=== PATIENT | female | born 1965 | race Caucasian/White ===

== ENCOUNTER 2023-05-13 07:35 | Emergency (ER) | payer OTHER, SELFPAY ==
[2023-05-13 07:47] VITALS: BP 119/84; PULSE 65; RESP 18; TEMP 36; O2SAT 98; BMI 24.3
[2023-05-13] MEDS: TETANUS/DIPHTH/PERTUSSIS 0.5 ML SYRINGE IM (08:18)
[2023-05-13] MEDS: cephALEXin 500 MG CAPSULE PO (08:22)
--- NOTE | 2023-05-13 09:04 | ED.ANIMALBIT ---
HPI - Animal Bite General Date Seen: 05/13/23 Chief Complaint: Animal Bite Stated Complaint: dog bite, on the left arm Time Seen by Provider: 05/13/23 07:55 Source: patient and other Mode of arrival: ambulatory Limitations: no limitations History of Present Illness HPI narrative: This very nice lady from [place], was at [place] on a run, when a group a dog that was held by another person jumped up and bit her on the left forearm. She is right-hand dominant, noted there is a laceration, she did get information on the dogs all the shots are up-to-date, but thought she may need stitches, she does no history of numbness tingling weakness, into her left extremity. She is able to move it normally. She is on no medications, is allergic to ibuprofen, which causes anaphylaxis. She has no immunosuppressive diseases on on any anticoagulants. MD complaint: animal bite Onset (ago): minute(s) Animal: dog Description of animal: household pet and immunizations UTD Mechanism: bite Location: other Location - Extremities: Left: forearm Pain description: other Severity: mild Context: provoked Associated symptoms: none Treatments prior to arrival: wound dressing(s) Related Data Patient tetanus UTD: No Home Medications Medication Instructions Recorded Confirmed sertraline 100 mg tablet 100 mg PO DAILY 05/13/23 05/13/23 Allergies Allergy/AdvReac Type Severity Reaction Status Date / Time ibuprofen Allergy Severe Difficulty Verified 05/13/23 07:47 Breathing Review of Systems Status of ROS: Reports: 10 or more systems reviewed and unremarkable except as noted in History and below Exam Narrative: Exam Narrative: Patient is a ezekiel lady in no apparent distress, half-bhatti laceration of 5 cm is noted on the extensor part of the forearm. She has full extension of her wrist, flexion lateral flexion, good cap refill good radial pulses. Elbow is nontender has full range of motion. Wound is anesthetized with 1% lidocaine with epinephrine times 10 mL. She tolerated this well, wound is cleaned out with the sterile water x5 100 mL, sterile prep and drape is done, 6 simple 4-0 sutures were used, to approximate the wound nicely. I did check the underlying structures, there appeared to be not into the fascia, with muscle and all the underlying structures were intact. No evidence of any foreign body. Estimated blood loss less than 1 mL. Dressing placed. Patient received prophylactic antibiotics. Post itching, normal neurovascular integrity is noted of her distal hand. We did offer and update her tetanus Const: Vital Signs, click to edit/add: Vital Signs - 24 hr 05/13/23 07:47 Temperature 96.8 F L Pulse Rate [Right Pulse Oximeter] 65 Respiratory Rate 18 Blood Pressure [Ri ght Upper Arm] 119/84 Pulse Oximetry 98 Oxygen Delivery Me thod Room Air Documenting provider has reviewed patient's vital signs: yes Course Vital Signs Vital signs: Initial Vital Signs Temperature 96.8 F L 05/13/23 07:47 Temperature Source Temporal Artery Scan 05/13/23 07:47 Pulse Rate 65 05/13/23 07:47 Respiratory Rate 18 05/13/23 07:47 Blood Pressure 119/84 05/13/23 07:47 Blood Pressure Mean 95 05/13/23 07:47 Blood Pressure Position Sitting 05/13/23 07:47 Pulse Oximetry 98 05/13/23 07:47 Oxygen Delivery Method Room Air 05/13/23 07:47 Vital Signs Temperature 96.8 F L 05/13/23 07:47 Pulse Rate 65 05/13/23 07:47 Respiratory Rate 18 05/13/23 07:47 Blood Pressure 119/84 05/13/23 07:47 Pulse Oximetry 98 05/13/23 07:47 Oxygen Delivery Method Room Air 05/13/23 07:47 Temperature 96.8 F L 05/13/23 07:47 Pulse Rate 65 05/13/23 07:47 Respiratory Rate 18 05/13/23 07:47 Blood Pressure 119/84 05/13/23 07:47 Pulse Oximetry 98 05/13/23 07:47 Oxygen Delivery Method Room Air 05/13/23 07:47 Discharge Plan Discharge Clinical Impression: Dog bite, Laceration of forearm Patient Disposition: Home w/ Parent or Adult Condition: Improved Instructions: Animal Bite (ED), Laceration (DC), Rabies (ED) Additional Instructions: Home rest use of antibiotics as directed, lots of probiotics with this as to avoid diarrhea, this may still occur, if you have abdominal pain diarrhea and fevers he need to come back. This is fairly clean wound, but there is still chance of infection even with antibiotics, redness swelling and pain, he should be res seen. Sutures should stay in for the next 12 days. Then they should come out. Showering is okay, please leave the bandage on till tomorrow, then may come off daily bacitracin is also a good idea. Return to the ER or primary care for wound check if needed. No swimming in the river, lakes, hot tubbing, showering is encouraged. Activity Level: Light activity Prescriptions: No Action sertraline 100 mg tablet 100 mg PO DAILY Follow Up/Referrals: Provider,Not a Local [Primary Care Provider] - Stand Alone Forms: [employer]Lex Info Instructions
--- NOTE | 2023-05-13 09:08 | ED.NURSE ---
Dressing applied above sutures, bacitracin, adaptic, gauze, secured in placed with rolled gauze. Reviewed instructions for care and management of sutures.
--- NOTE | 2023-05-13 09:38 | ED.NURSE ---
[facility] [place] contacted regarding dog bite.
== END 2023-05-13 09:15 | disposition home or self-care (01) ==
PROVIDERS: Emergency Provider Family Medicine
DX: S51.852A Open bite of left forearm, initial encounter (principal); W54.0XXA Bitten by dog, initial encounter; Y93.02 Activity, running
CPT/HCPCS: 12002; 90471; 90715; 99283; 99284; A9270